=== PATIENT | female | born 1995 | race Caucasian/White ===

== ENCOUNTER 2018-11-13 14:46 | Emergency (ER) | payer BC ==
[2018-11-13 14:52] VITALS: BP 122/67; PULSE 99; TEMP 98.3
--- NOTE | 2018-11-13 15:55 | NUR ---
RANJAN responded to an ED consult. Patient was recently at [facility] and it was recommended that she receive post acute rehab at [facility] in [place]. Patient ultimately decided to go home instead of going to rehab. Swimmer inquired if RANJAN could find a placement for patient. Patient was in the ED waiting room when RANJAN met with her. She reported she just wanted to go home. RANJAN asked if patient would give her 15 mins to see if she can find her a placement. RANJAN then contact [facility] in [place] and spoke with Marcio. He reports that patient would need to be re-evaluated by PT and OT and then her insurance would need to approve the admission. Marcio reported that since it was almost closing time for her insurance, they would not be able to admit patient today. RANJAN then met with patient again in the parking lot, and she reported that she is going home. RANJAN reported this back to ED staff.
--- NOTE | 2018-11-13 16:06 | NUR ---
RANJAN responded to an ED consult. Patient was recently at [facility] and it was recommended that she receive post acute rehab at [facility] in [place]. Patient ultimately decided to go home instead of going to rehab. Numerical [employer] Lathe Operator inquired if RANJAN could find a placement for patient. Patient was in the ED waiting room when RANJAN met with her. She reported she just wanted to go home. RANJAN asked if patient would give her 15 mins to see if she can find her a placement. RANJAN then contact [facility] in [place] and spoke with Marcio. He reports that patient would need to be re-evaluated by PT and OT and then her insurance would need to approve the admission. Marcio reported that since it was almost closing time for her insurance, they would not be able to admit patient today. RANJAN then met with patient again in the parking lot, and she reported that she is going home. RANJAN reported this back to ED staff.
== END 2018-11-13 15:50 | disposition left against medical advice (07) ==
LOC: COL.ER 14:46
DX: R69 Illness, unspecified (principal)

== ENCOUNTER 2020-11-04 17:15 | Emergency (ER) | payer BC ==
[~2020-11-04] VITALS: Ht 152.4 cm; Wt 74.5 kg
[2020-11-04 18:00] VITALS: BP 134/80; PULSE 100; TEMP 98.5
== END 2020-11-04 18:03 | disposition home or self-care (01) ==
LOC: COL.ER 17:15
DX: S61.411A Laceration without foreign body of right hand, initial encounter (principal); F17.200 Nicotine dependence, unspecified, uncomplicated; W26.0XXA Contact with knife, initial encounter

== ENCOUNTER 2023-10-03 09:20 | Emergency (ER) | payer BC ==
[~2023-10-03] VITALS: Ht 162.6 cm; Wt 78.6 kg
[2023-10-03 09:26] VITALS: TEMP 98.5
[2023-10-03] MEDS ORDERED: Acetaminophen 500 MG TAB PO ONE (10:00)
[2023-10-03] MEDS ORDERED: Lidocaine 2% Viscous 15 ML UNIT DOSE MM ONE (11:15)
[2023-10-03] MEDS ORDERED: Sucralfate Susp 1 GM/10 ML UD PO ONE (11:15)
[2023-10-03] MEDS ORDERED: Mag/Al Hydrox/Simeth Susp 30 ML CUP PO ONE (11:15)
[2023-10-03 13:11] VITALS: BP 132/68; PULSE 87
== END 2023-10-03 13:14 | disposition home or self-care (01) ==
LOC: COL.ER 09:20
DX: R13.10 Dysphagia, unspecified (principal); R11.2 Nausea with vomiting, unspecified; R09.A2 Foreign body sensation, throat